=== PATIENT | female | born 1960 | race American Indian/Alaskan Native ===

== ENCOUNTER 2019-01-09 10:58 | Emergency (ER) | payer MEDICAID ==
--- NOTE | 2019-01-09 12:04 | Event Note ---
ED Screening Note Date of service: 01/09/19 Time: 11:59 ED Screening Note: This is a 58 y.o. F. that presents to ER with abdominal pain for several weeks. Seen at [facility] with similar symptoms 2 weeks ago and referred to Gastroenterology. PMH pancreatitis This initial assessment/diagnostic orders/clinical plan/treatment(s) is/are subject to change based on patients health status, clinical progression and re- assessment by fellow clinical providers in the ED. Further treatment and workup at subsequent clinical providers discretion. Patient/guardian urged not to elope from the ED as their condition may be serious if not clinically assessed and managed. Initial orders include: Labs and CT of abdomen
[2019-01-09 12:58] LABS: Bacteria,Urine 1+ /HPF (Negative)
[2019-01-09 13:22] LABS: Basophils # (Auto) 0.1 K/mm3 (0.0-0.1); Eosinophils # (Auto) 0.1 K/mm3 (0.0-0.4); Eosinophils % (Auto) 1.4 % (0.0-4.3); Hematocrit 36.5 % (30.3-42.9); Hemoglobin 12.6 gm/dl (10.1-14.3); Lymphocytes # (Auto) 2.1 K/mm3 (1.2-5.4); Lymphocytes % (Auto) 35.9 % (13.4-35.0); Mean Corpuscular HGB Conc 35 % (30-34); Mean Corpuscular Volume 83 fl (79-97); Monocytes # (Auto) 0.4 K/mm3 (0.0-0.8); Monocytes % (Auto) 7.5 % (0.0-7.3); Platelet Count 462 K/mm3 (140-440); Red Blood Count 4.42 M/mm3 (3.65-5.03); Red Cell Distribution Width 14.8 % (13.2-15.2)
[2019-01-09 13:28] LABS: Bilirubin,Urine NEG (Negative); Blood,Urine NEG (Negative); Color,Urine Yellow (Yellow); Protein,Urine <15 mg/dL mg/dL (Negative); Urobilinogen,Urine < 2.0 mg/dL (<2.0)
[2019-01-09 13:51] LABS: Alanine Aminotransferase 23 units/L (7-56); Albumin 4.3 g/dL (3.9-5); BUN/Creatinine Ratio 23; Blood Urea Nitrogen 9 mg/dL (7-17); Calcium 10.3 mg/dL (8.4-10.2); Hemolysis Index 18
[2019-01-09] MEDS ORDERED: ZOFRAN IV ONE (16:47)
[2019-01-09] MEDS ORDERED: MORPHINE IV ONE (16:47)
--- NOTE | 2019-01-09 18:10 | Emergency Department Report ---
ED Abdominal Pain HPI - General Chief Complaint: Abdominal Pain Stated Complaint: ABD PAIN Time Seen by Provider: 01/09/19 11:59 Source: patient Mode of arrival: Ambulatory Limitations: No Limitations - History of Present Illness Initial Comments: This is a 58-year-old female with past medical history of alcoholic pancreatitis who presents to the ED complaining of abdominal pain with nausea vomiting that started just today. Patient states that she's been doing well with abdominal pain for a long time now. Patient states she was seen by gastroenterology last month but could not completely and endoscopy Patient states abdominal pain is localized to her lower abdomen. She denies radiation anywhere else. Patient states she has not had alcohol treatment since August. Patient denies fever chills, diarrhea,chest pain shortness of breath or any other MD Complaint: abdominal pain Severity scale (0 -10): 10 - Related Data Previous Rx's Medication Instructions Recorded Last Taken Type Dicyclomine [Bentyl] 10 mg PO TID #30 capsule 01/09/19 Unknown Rx Famotidine [Pepcid] 20 mg PO BID #30 tablet 01/09/19 Unknown Rx Ondansetron [Zofran ODT TAB] 8 mg PO Q12HR #20 tab.rapdis 01/09/19 Unknown Rx Allergies Allergy/AdvReac Type Severity Reaction Status Date / Time No Known Allergies Allergy Unverified 01/09/19 11:01 ED Review of Systems ROS: Stated complaint: ABD PAIN Other details as noted in HPI Comment: All other systems reviewed and negative ED Past Medical Hx - Past Medical History Previous Medical History?: Yes Additional medical history: Pancreatitis - Surgical History Past Surgical History?: Yes Additional Surgical History: C section - Social History Smoking Status: Current Every Day Smoker Substance Use Type: None - Medications Home Medications: Home Medications Medication Instructions Recorded Confirmed Last Taken Type Dicyclomine [Bentyl] 10 mg PO TID #30 capsule 01/09/19 Unknown Rx Famotidine [Pepcid] 20 mg PO BID #30 tablet 01/09/19 Unknown Rx Ondansetron [Zofran ODT TAB] 8 mg PO Q12HR #20 tab.rapdis 01/09/19 Unknown Rx ED Physical Exam - General Limitations: No Limitations General appearance: alert, in no apparent distress - Head Head exam: Present: atraumatic, normocephalic - Eye Eye exam: Present: normal appearance - ENT ENT exam: Present: mucous membranes moist - Neck Neck exam: Present: normal inspection - Respiratory Respiratory exam: Present: normal lung sounds bilaterally. Absent: respiratory distress - Cardiovascular Cardiovascular Exam: Present: regular rate, normal rhythm. Absent: systolic murmur, diastolic murmur, rubs, gallop - GI/Abdominal GI/Abdominal exam: Present: soft, tenderness (mild to palpationof lower abd), normal bowel sounds. Absent: distended, mass, bruit - Expanded GI/Abdominal Exam Expanded GI/Abdominal exam: Absent: obturator sign, Awan's sign, Rovsing's sign - Extremities Exam Extremities exam: Present: normal inspection - Back Exam Back exam: Present: normal inspection - Neurological Exam Neurological exam: Present: alert, oriented X3 - Psychiatric Psychiatric exam: Present: normal affect, normal mood - Skin Skin exam: Present: warm, dry, intact, normal color. Absent: rash ED Course Vital Signs 01/09/19 01/09/19 01/09/19 11:59 17:03 17:05 Temperature 98.4 F Pulse Rate 77 Respiratory 18 17 16 Rate Blood Pressure 130/82 Blood Pressure [Right] O2 Sat by Pulse 98 Oximetry 01/09/19 17:15 Temperature 98.7 F Pulse Rate 66 Respiratory 17 Rate Blood Pressure Blood Pressure 146/93 [Right] O2 Sat by Pulse 98 Oximetry ED Medical Decision Making - Lab Data Result diagrams: 01/09/19 12:44 01/09/19 12:44 Laboratory Last Values WBC 6.0 K/mm3 (4.5-11.0) 01/09/19 12:44 RBC 4.42 M/mm3 (3.65-5.03) 01/09/19 12:44 Hgb 12.6 gm/dl (10.1-14.3) 01/09/19 12:44 Hct 36.5 % (30.3-42.9) 01/09/19 12:44 MCV 83 fl (79-97) 01/09/19 12:44 MCH 29 pg (28-32) 01/09/19 12:44 MCHC 35 % (30-34) H 01/09/19 12:44 RDW 14.8 % (13.2-15.2) 01/09/19 12:44 Plt Count 462 K/mm3 (140-440) H 01/09/19 12:44 Lymph % (Auto) 35.9 % (13.4-35.0) H 01/09/19 12:44 [place] % (Auto) 7.5 % (0.0-7.3) H 01/09/19 12:44 Eos % (Auto) 1.4 % (0.0-4.3) 01/09/19 12:44 Baso % (Auto) 1.0 % (0.0-1.8) 01/09/19 12:44 Lymph # 2.1 K/mm3 (1.2-5.4) 01/09/19 12:44 [place] # 0.4 K/mm3 (0.0-0.8) 01/09/19 12:44 Eos # 0.1 K/mm3 (0.0-0.4) 01/09/19 12:44 Baso # 0.1 K/mm3 (0.0-0.1) 01/09/19 12:44 Seg Neutrophils % 54.2 % (40.0-70.0) 01/09/19 12:44 Seg Neutrophils # 3.2 K/mm3 (1.8-7.7) 01/09/19 12:44 Sodium 141 mmol/L (137-145) 01/09/19 12:44 Potassium 4.0 mmol/L (3.6-5.0) 01/09/19 12:44 Chloride 101.6 mmol/L (98-107) 01/09/19 12:44 Carbon Dioxide 27 mmol/L (22-30) 01/09/19 12:44 16 mmol/L 01/09/19 12:44 BUN 9 mg/dL (7-17) 01/09/19 12:44 0.4 mg/dL (0.7-1.2) L 01/09/19 12:44 Estimated GFR > 60 ml/min 01/09/19 12:44 23 % 01/09/19 12:44 Glucose 86 mg/dL (65-100) 01/09/19 12:44 Calcium 10.3 mg/dL (8.4-10.2) H 01/09/19 12:44 0.30 mg/dL (0.1-1.2) 01/09/19 12:44 AST 24 units/L (5-40) 01/09/19 12:44 ALT 23 units/L (7-56) 01/09/19 12:44 186 units/L (35-129) H 01/09/19 12:44 8.0 g/dL (6.3-8.2) 01/09/19 12:44 4.3 g/dL (3.9-5) 01/09/19 12:44 1.2 % 01/09/19 12:44 140 units/L (13-60) H 01/09/19 12:44 Yellow (Yellow) 01/09/19 Unknown Slightly-cloudy (Clear) 01/09/19 Unknown 6.0 (5.0-7.0) 01/09/19 Unknown Ur Specific [place] 1.011 (1.003-1.030) 01/09/19 Unknown <15 mg/dl mg/dL (Negative) 01/09/19 Unknown Neg mg/dL (Negative) 01/09/19 Unknown Neg mg/dL (Negative) 01/09/19 Unknown Neg (Negative) 01/09/19 Unknown Neg (Negative) 01/09/19 Unknown Ur Reducing Substances Not Reportable 01/09/19 Unknown Neg (Negative) 01/09/19 Unknown Not Reportable 01/09/19 Unknown < 2.0 mg/dL (<2.0) 01/09/19 Unknown Ur Leukocyte Esterase Tr (Negative) 01/09/19 Unknown 6.0 /HPF (0.0-6.0) 01/09/19 Unknown 2.0 /HPF (0.0-6.0) 01/09/19 Unknown U Epithel Cells (Auto) 11.0 /HPF (0-13.0) 01/09/19 Unknown 1+ /HPF (Negative) 01/09/19 Unknown - Radiology Data Radiology results: report reviewed, image reviewed CT ABDOMEN AND PELVIS WITH IV CONTRAST INDICATION: diffuse abdominal pain. COMPARISON: None available. TECHNIQUE: All CT scans at this facility use dose modulation, automated exposure control, iterative reconstruction or weight based dosing, when appropriate, to reduce radiation dose to as low as reasonably achievable. FINDINGS: Lung Bases: Clear. Skeletal System: No acute abnormality. ABDOMEN: Liver: Normal. Gallbladder: Normal. Bile Ducts: Normal. Pancreas: Normal. Spleen: Normal. Adrenals: Normal. Right Kidney: Normal. Left Kidney: Normal. Stomach and Bowel: There is a somewhat bilobed, septated low density collection which measures 3.9 x 2.4 cm in the region of the second portion of the duodenum. This appears to be intramural. There is mild stranding in the surrounding mesentery. Upper GI tract is otherwise unremarkable. Lymph Nodes: No significant adenopathy. Aorta: No significant abnormality. Additional Findings: There is nonspecific superficial subcutaneous nodule within the right anterior abdominal wall (axial image 59). PELVIS: Colon: Normal aside from diverticulosis. Urinary Bladder and Distal Ureters: Normal. Appendix: Normal. Lymph Nodes: No significant adenopathy. Additional Findings: There is trace free fluid in the cul-de-sac. Trace free fluid is also seen in the right suprapubic pelvis. IMPRESSION: 1. Circumscribed somewhat bilobed low density collection appears to be within the wall of the distal descending duodenum, measurements as above. This is concerning for duodenal ulcer. There is mild surrounding inflammation. Endoscopy is recommended. There is trace free fluid in the pelvis. 2. Incidental findings, as above. Signer Name: Adithya Vazquez MD Signed: 01/09/2019 6:23 PM Workstation Name: [id number] Transcribed By: SW Dictated By: Adithya Vazquez MD Electronically Authenticated By: Adithya Vazquez MD Signed Date/Time: 01/09/19 1823 - Medical Decision Making 58-year-old female presents with abdominal pain most likely from a duodenal ulcer as noted on CT scan. CBC, CMP shows no abnormal findings. No leukocytosis. CT scan as reported above Discussed findings with the patient. Patient received pain medication in the ED. Vital signs are normal patient is in no acute distress discussed follow-up with the belt fixer for possible endoscopy. Critical care attestation.: If time is entered above; I have spent that time in minutes in the direct care of this critically ill patient, excluding procedure time. ED Disposition Clinical Impression: Duodenal ulcer, Abdominal pain Disposition: -01 TO HOME OR SELFCARE Is pt being admited?: No Does the pt Need Aspirin: No Condition: Stable Instructions: Abdominal Pain (ED), Peptic Ulcer (ED) Additional Instructions: Make sure to follow up with the primary care physician as well as her belt fixer discussed. Take all your medications as you've been prescribed. If you have any worsening symptoms or develop new symptoms please return to ED immediately. Prescriptions: Dicyclomine [Bentyl] 10 mg PO TID #30 capsule Famotidine [Pepcid] 20 mg PO BID #30 tablet Ondansetron [Zofran ODT TAB] 8 mg PO Q12HR #20 tab.rapdis Referrals: IGGY FAUSTIN MD [Primary Care Provider] - 3-5 Days [facility] [Provider Group] - 3-5 Days [facility] [Provider Group] - 3-5 Days Forms: Accompanied Note, Work/School Release Form(ED) Time of Disposition: 18:46
--- NOTE | 2019-01-09 18:27 | Cat Scan Report ---
CT ABDOMEN AND PELVIS WITH IV CONTRAST INDICATION: diffuse abdominal pain. COMPARISON: None available. TECHNIQUE: All CT scans at this facility use dose modulation, automated exposure control, iterative reconstructi on or weight based dosing, when appropriate, to reduce radiation dose to as low as reasonably achieva ble. FINDINGS: Lung Bases: Clear. Skeletal System: No acute abnormality. ABDOMEN: Liver: Normal. Gallbladder: Normal. Bile Ducts: Normal. Pancreas: Normal. Spleen: Normal. Adrenals: Normal. Right Kidney: Normal. Left Kidney: Normal. Stomach and Bowel: There is a somewhat bilobed, septated low density collection which measures 3.9 x 2.4 cm in the region of the second portion of the duodenum. This appears to be intramural. There is m ild stranding in the surrounding mesentery. Upper GI tract is otherwise unremarkable. Lymph Nodes: No significant adenopathy. Aorta: No significant abnormality. Additional Findings: There is nonspecific superficial subcutaneous nodule within the right anterior a bdominal wall (axial image 59). PELVIS: Colon: Normal aside from diverticulosis. Urinary Bladder and Distal Ureters: Normal. Appendix: Normal. Lymph Nodes: No significant adenopathy. Additional Findings: There is trace free fluid in the cul-de-sac. Trace free fluid is also seen in th e right suprapubic pelvis. IMPRESSION: 1. Circumscribed somewhat bilobed low density collection appears to be within the wall of the distal descending duodenum, measurements as above. This is concerning for duodenal ulcer. There is mild subhash rounding inflammation. Endoscopy is recommended. There is trace free fluid in the pelvis. 2. Incidental findings, as above. Signer Name: Adithya Vazquez MD Signed: 01/09/2019 6:23 PM Workstation Name: [id number]
[2019-01-09 19:28] VITALS: BP 144/81
== END 2019-01-09 19:27 | disposition home or self-care (01) ==
LOC: ED 10:58
DX: K26.9 Duodenal ulcer, unspecified as acute or chronic, without hemorrhage or perforation (principal); F17.200 Nicotine dependence, unspecified, uncomplicated; Z79.899 Other long term (current) drug therapy; Z98.890 Other specified postprocedural states
CPT/HCPCS: 36415; 74177; 80053; 81001; 83690; 85025; 96374; 96375; 99284; J2270; J2405; Q9967